=== PATIENT | female | born 1940 | race Caucasian/White ===

== ENCOUNTER → 2017-01-23 | Outpatient (CLI) | payer MEDICARE, BC | END | disposition home or self-care (01) | LOC: RAD 14:34 | PROVIDERS: ATTEND Neurological Surgery | DX: M41.85 Other forms of scoliosis, thoracolumbar region (principal); M41.86 Other forms of scoliosis, lumbar region | CPT/HCPCS: 72082 ==

== ENCOUNTER 2017-02-04 06:53 | Inpatient (IN) | payer MEDICARE, BC ==
[~2017-02-04] VITALS: Ht 165.1 cm; Wt 79.2 kg
[~2017-02-04 06:53] MED LIST: BACITRACIN 50,000 UNIT ONE; BUPIVACAINE/PF 0.5% ONE; EPINEPHRINE 1 MG/ML, 1ML ONE; THROMBIN 20,000 UNIT VIAL TP ONE
[2017-02-04] MEDS ORDERED: LACTATED RINGERS 1,000 ML IV SCH (07:15)
[2017-02-04] MEDS ORDERED: POTA10TA PO (07:20)
[2017-02-04] MEDS ORDERED: FURO20TA3 PO (07:20)
[2017-02-04] MEDS ORDERED: METO50TA82 PO (07:20)
[2017-02-04] MEDS ORDERED: ATOR10TA PO (07:20)
[2017-02-04] MEDS ORDERED: LOSA100T6 PO (07:20)
[2017-02-04] MEDS ORDERED: CELE200C PO (07:20)
[2017-02-04] MEDS ORDERED: AMLO5TAB2 PO (07:20)
[2017-02-04] MEDS ORDERED: GLUC500T11 PO (07:23)
[2017-02-04] MEDS ORDERED: CALC1TAB PO (07:23)
[2017-02-04] MEDS ORDERED: ASPI-496 PO (07:23)
[2017-02-04] MEDS ORDERED: MULT-717 PO (07:23)
[2017-02-04] MEDS ORDERED: OMEG-14 PO (07:23)
[2017-02-04] MEDS ORDERED: VIT1TABL32 PO (07:23)
[2017-02-04 07:25] VITALS: BP 160/85
[2017-02-04] MEDS ORDERED: FENTANYL PF 100 MCG/2ML ONE ×5 (08:24→12:35)
[2017-02-04] MEDS ORDERED: MIDAZOLAM 1 MG/ML, 2ML ONE (08:24)
[2017-02-04] MEDS ORDERED: ROCURONIUM 10 MG/ML ONE (10:05)
[2017-02-04] MEDS ORDERED: PROPOFOL 10 MG/ML, 50ML ONE (10:05)
[2017-02-04] MEDS ORDERED: SUCCINYLCHOLINE 20 MG/ML, 10ML ONE (10:05)
[2017-02-04] MEDS ORDERED: DEXAMETHASONE 4 MG/ML, 1ML ONE (10:05)
[2017-02-04] MEDS ORDERED: CEFAZOLIN 1,000 MG ONE (10:05)
[2017-02-04] MEDS ORDERED: ONDANSETRON 2MG/ML, 2ML ONE (10:05)
[2017-02-04] MEDS ORDERED: PROPOFOL 10 MG/ML, 20ML ONE (10:05)
[2017-02-04] MEDS ORDERED: LABETALOL 5MG/ML, 20ML IV PRN (10:30)
[2017-02-04] MEDS ORDERED: MEPERIDINE/PF 25MG/0.5ML IVPush PRN (10:30)
[2017-02-04] MEDS ORDERED: PROMETHAZINE 25 MG/ML, 1ML IV PRN (10:30)
[2017-02-04] MEDS ORDERED: ACETAMINOPHEN 325 MG TABLET PO PRN (10:30)
[2017-02-04] MEDS ORDERED: hydrALAzine 20 MG/ML, 1ML IV PRN (10:30)
[2017-02-04] MEDS ORDERED: ONDANSETRON 2MG/ML, 2ML IVPush PRN (10:30)
[2017-02-04] MEDS ORDERED: HYDROmorphone 1 MG/ML, 1ML IV PRN (10:30)
[2017-02-04] MEDS ORDERED: OXYcodone 5 MG/5 ML ORAL.SOL UDC ONE ×2 (12:09→12:23)
[2017-02-04] MEDS ORDERED: ACETAMINOPHEN 650 MG/20.3 ML UDC ONE (12:09)
[2017-02-04] MEDS: FENTANYL PF 100 MCG/2ML IV PRN ×4 (12:12→12:43)
[2017-02-04] MEDS: OXYcodone 5 MG/5 ML ORAL.SOL UDC PO PRN ×2 (12:15→12:24)
[2017-02-04] MEDS ORDERED: hydrALAzine 20 MG/ML, 1ML ONE (12:23)
[2017-02-04] MEDS ORDERED: METHOCARBAMOL 1000MG/10 ML IVPB ONE (12:30)
[2017-02-04] MEDS ORDERED: HYDROmorphone 1 MG/ML, 1ML ONE (12:54)
[2017-02-04] MEDS ORDERED: METHOCARBAMOL 1,000 MG in DEXTROSE 5% 100 ML IV ONE (13:00)
[2017-02-04] MEDS ORDERED: DIPHENHYDRAMINE 50 MG CAPSULE PO PRN (15:00)
[2017-02-04] MEDS ORDERED: HYDROcodone/APAP 5/325 TABLET PO PRN (15:00)
[2017-02-04] MEDS ORDERED: DIPHENHYDRAMINE 50 MG/ML, 1ML IVPush PRN (15:00)
[2017-02-04] MEDS ORDERED: BISACODYL 10 MG SUPP PR PRN (15:00)
[2017-02-04] MEDS ORDERED: PROMETHAZINE 25 MG/ML, 1ML IM PRN (15:00)
[2017-02-04] MEDS ORDERED: MAGNESIUM HYDROXIDE 8%, 30ML UDC PO PRN (15:00)
[2017-02-04] MEDS ORDERED: DIPHENHYDRAMINE 50 MG/ML, 1ML IM PRN (15:00)
[2017-02-04] MEDS ORDERED: PHARMACY MAY ADJ FOR RENAL FX MC PRN ×2 (15:00→18:30)
[2017-02-04] MEDS ORDERED: morphine SULFATE 10 MG/ML, 1ML IV PRN (15:00)
[2017-02-04] MEDS ORDERED: HYDROcodone/APAP 10/325 MG TABLET PO PRN (15:00)
[2017-02-04] MEDS ORDERED: ONDANSETRON 2MG/ML, 2ML IV PRN (15:00)
[2017-02-04] MEDS: NS + 20MEQ KCL 1,000 ML IV SCH (15:53)
[2017-02-04] MEDS ORDERED: OXYcodone/APAP 5/325MG TABLET ONE (17:18)
[2017-02-04] MEDS: OXYcodone/APAP 5/325MG TABLET PO PRN ×2 (17:21→21:53)
[2017-02-04] MEDS: DEXAMETHASONE 4 MG/ML, 1ML IV SCH ×2 (18:35→23:49)
[2017-02-04] MEDS: CEFAZOLIN PMX 2GM/50ML 50 ML IVPB SCH (18:35)
[2017-02-04 19:20] VITALS: BP 130/72
[2017-02-04] MEDS ORDERED: METOPROLOL TARTRATE 50 MG TABLET PO SCH (21:00)
[2017-02-04] MEDS ORDERED: MULTIVITS,STRESS FORMULA 1 TABLET PO SCH (21:00)
[2017-02-04] MEDS ORDERED: ZOLPIDEM 5MG TABLET PO PRN (21:00)
[2017-02-04] MEDS ORDERED: ATORVASTATIN 10 MG TABLET PO SCH (21:00)
[2017-02-04] MEDS: CALCIUM/VITAMIN D3 250-125 TABLET PO SCH (22:11)
[2017-02-04] MEDS: METHOCARBAMOL 750 MG in DEXTROSE 5% 100 ML IV SCH (22:12)
[2017-02-04 23:08] VITALS: BP 100/61
[2017-02-05] MEDS: CEFAZOLIN PMX 2GM/50ML 50 ML IVPB SCH ×2 (01:53→09:50)
[2017-02-05 03:45] VITALS: BP 157/80
[2017-02-05] MEDS: METHOCARBAMOL 750 MG in DEXTROSE 5% 100 ML IV SCH (05:17)
[2017-02-05] MEDS: DEXAMETHASONE 4 MG/ML, 1ML IV SCH ×2 (05:17→11:25)
[2017-02-05] MEDS: NS + 20MEQ KCL 1,000 ML IV SCH (05:18)
[2017-02-05 06:55] VITALS: BP 168/77
[2017-02-05] MEDS: CALCIUM/VITAMIN D3 250-125 TABLET PO SCH (08:31)
[2017-02-05] MEDS ORDERED: MULTIVITAMINS/MINERALS TABLET PO SCH (09:00)
[2017-02-05] MEDS ORDERED: SENNA/DOCUSATE TABLET PO SCH (09:00)
[2017-02-05] MEDS ORDERED: FUROSEMIDE 40 MG TABLET PO SCH (09:00)
[2017-02-05] MEDS ORDERED: POTASSIUM CHLORIDE 10 MEQ TABLET.ER PO SCH (09:00)
[2017-02-05] MEDS ORDERED: LOSARTAN 50MG TABLET PO SCH (09:00)
[2017-02-05] MEDS ORDERED: AMLODIPINE 5 MG TABLET PO SCH (09:00)
[2017-02-05 11:29] VITALS: BP 162/70
[2017-02-05] MEDS ORDERED: HYDR-3307 PO (12:35)
[2017-02-05] MEDS ORDERED: METH750T87 PO (12:36)
[2017-02-05] MEDS ORDERED: METH4TAB2 PO (12:36)
[2017-02-06] MEDS ORDERED: METHOCARBAMOL 750 MG TABLET PO SCH (22:00)
== END 2017-02-05 12:57 | disposition home or self-care (01) | DRG 472 ==
LOC: ORIP 06:53 → 4NOR 17:33 → DCLOUNGE 02-05 12:20
PROVIDERS: ADMIT Neurological Surgery; ATTEND Neurological Surgery
PROC: 0RG10A0 Fusion of Cervical Vertebral Joint with Interbody Fusion Device, Anterior Approach, Anterior Column, Open Approach (ICD-10-PCS; 2017-02-04)
PROC: 4A1134G Monitoring of Peripheral Nervous Electrical Activity, Intraoperative, Percutaneous Approach (ICD-10-PCS; 2017-02-04)
PROC: 0RB30ZZ Excision of Cervical Vertebral Disc, Open Approach (ICD-10-PCS; principal; 2017-02-04 09:00)
DX: M48.02 Spinal stenosis, cervical region (principal); G95.29 Other cord compression; M54.12 Radiculopathy, cervical region
CPT/HCPCS: 36415; 72040; 86850; 86900; C1713; J0171; J0690; J1100; J1170; J2250; J2405; J2704; J3010; J3480; J3490; J0330; J0360; J2800; J7120